=== PATIENT | male | born 1965 | race African-American/Black ===

== ENCOUNTER 2020-08-22 16:11 | Emergency (ER) | payer MEDICAID ==
[~2020-08-22] VITALS: Ht 180.3 cm; Wt 61.4 kg
[2020-08-22] MEDS ORDERED: LIDOCAINE 2% Multi-Dose 20 ML VIAL. IJ ONE (18:45)
--- NOTE | 2020-08-22 20:52 | RAD ---
PQRS Compliance Statement: One or more of the following individualized dose reduction techniques were utilized for this examinat ion: 1. Automated exposure control 2. Adjustment of the mA and/or kV according to patient size 3. Use of iterative reconstruction technique CT head and cervical spine without contrast 08/22/2020 7:17 PM INDICATION: Fall with injury. On blood thinners. COMPARISON: None TECHNIQUE: Multiple axial CT images of the head were obtained from skull base through the vertex with out intravenous contrast. Multiple axial CT images of the cervical spine were obtained without intrav enous contrast. Coronal and sagittal reformats are provided. FINDINGS: Head: Ventricles, sulci and basal cisterns are within normal limits.. Low-attenuation in the periventricula r white matter is suggestive of chronic small vessel ischemic changes. There is no hydrocephalus. Gra y-white matter differentiation is normal. There is no acute intracranial hemorrhage. There is no mass , mass effect or midline shift. Posterior fossa is normal in appearance. Visualized portions of the orbits are normal. Paranasal sinuses are well aerated. Mastoid air cells a re well aerated. Scalp and calvaria are normal. Cervical spine: Minimal retrolisthesis of C4 on C5.. Skull base is intact. Craniocervical junction is normal in appea maximiliano. Atlantoaxial articulation is normal. Vertebral body heights are maintained without evidence for acute fracture. Mild disc height loss at C5, C5-C6 and C6-C7. Mild facet arthropathy. No significant uncovertebral vale int disease. No significant neuroforaminal or spinal canal stenosis There is no prevertebral soft tissue swelling. Thyroid gland is normal in appearance.. Mild parasepta l pulmonary emphysema the lung apices. IMPRESSION: 1. No acute intracranial hemorrhage. Low-attenuation in the periventricular white matter is suggestiv e of chronic small vessel ischemic changes. 2. No acute fracture of the cervical spine. Mild cervical spondylosis. Electronically signed by: Saira Lloyd MD (08/22/2020 8:49 PM) [facility]
[2020-08-22] MEDS ORDERED: CEPH500T PO (22:22)
--- NOTE | 2020-08-22 22:22 | ED.ADGEN ---
Past Medical History Past Medical History: Hypertension, VA, Seizure Past Surgical History: No Surgical History Smoking Status: Current Every Day Smoker Alcohol Use: Heavy General Adult EDM: Chief Complaint: LACERATION/AVULSION HPI: HPI: Patient is a 54 year old AA male who presents emergency department with complaints of a laceration to his left lower lip that happened this morning at 3:00 when he fell down some stairs. Patient reports that there was a brief loss of consciousness. He complains of swelling to his right forehead. Patient denies any loose teeth, chest pain, palpitations, shortness of breath, extremity pain, numbness, tingling, or weakness. He denies any vision changes, dizziness, syncope, fever, nausea, vomiting, diarrhea, or abdominal pain. Patient's denies any dizziness. He states his last tetanus shot was less than 5 years ago. Currently rates his pain a 9 out of 10 on the pain scale, he denies any alleviating factors, the pain is worse if he touches his lip. Review of Systems: Review of Systems: Complete ROS is negative unless otherwise noted in HPI. Current Medications: Current Medications Medications (Trade) Dose Ordered Sig/Anisha Start Time Stop Time Status Last Admin Dose Admin Lidocaine HCl (Lidocaine 2% 20ml Vial) 20 ml 1X ONCE 08/22/20 18:45 08/22/20 18:46 DC 08/22/20 20:45 20 ML Allergies: Allergies: Allergies Coded Allergies Type Severity Reaction Last Updated Verified No Known Drug Allergies 08/22/20 No Physical Exam: PE: See Above Constitutional: Well developed, well nourished, no acute distress, non-toxic appearance unkept appearance. [] HENT: Normocephalic, bilateral external ears normal, nose normal, swelling and small abrasion to the right forehead without any active bleeding or foreign body; laceration to the left lower lip, no obvious dental deformity or loose teeth Eyes: PERRLA, EOMI, conjunctiva normal, no discharge. [] Neck: Normal range of motion, supple, nontender, no stridor. [] Cardiovascular:Heart rate regular rhythm Lungs & Thorax: Respirations even and unlabored, no retractions, no respiratory distress Abdomen: soft, no tenderness Back: Nontender, no obvious deformity or step-off, Skin: Warm, dry, no erythema, no rash; see HENT assessment. [] Extremities: No cyanosis, ROM intact, no edema. [] Neurologic: Alert and oriented X 3, normal motor, normal sensory, no focal deficits noted. [] Psychologic: Affect normal, judgement normal, mood normal. [] Current Patient Data: Vital Signs: Vital Signs Date Time Temp Pulse Resp B/P (MAP) Pulse Ox O2 Delivery O2 Flow Rate FiO2 08/22/20 23:07 71 20 133/66 (88) 100 Room Air 08/22/20 17:31 98.2 98.2 EKG: EKG: [] Heart Score: C/O Chest Pain: No Risk Scores: Score 0 - 3: 2.5% MACE over next 6 weeks - Discharge Home Score 4 - 6: 20.3% MACE over next 6 weeks - Admit for Clinical Observation Score 7 - 10: 72.7% MACE over next 6 weeks - Early Invasive Strategies Radiology/Procedures: Radiology/Procedures: Laceration Repair by me: Anesthesia: 2% lidocaine locally Location: Right lower lip Tendon/Joint/Nerves: No injury Foreign body: None detected after copious irrigation and exploration with NS and chlorhexidine Technique: 2 simple Interrupted Sutures with 5-0 Vicryl Complexity: No subcutaneous sutures/mucosal repair/edge excision Post Closure Length: 1.5 cm Patient's bleeding was easily controlled in the department and there is no indication of anemia. No evidence of compartment syndrome, neurologic injury, vascular injury, open joint, tendon laceration, or foreign body. Patient is appropriate for outpatient follow up. PROCEDURE: CT HEAD AND CERVICAL SPINE WO RS Compliance Statement: One or more of the following individualized dose reduction techniques were utilized for this examination: 1. Automated exposure control 2. Adjustment of the mA and/or kV according to patient size 3. Use of iterative reconstruction technique CT head and cervical spine without contrast 08/22/2020 7:17 PM INDICATION: Fall with injury. On blood thinners. COMPARISON: None TECHNIQUE: Multiple axial CT images of the head were obtained from skull base through the vertex without intravenous contrast. Multiple axial CT images of the cervical spine were obtained without intravenous contrast. Coronal and sagittal reformats are provided. FINDINGS: Head: Ventricles, sulci and basal cisterns are within normal limits.. Low-attenuation in the periventricular white matter is suggestive of chronic small vessel ischemic changes. There is no hydrocephalus. Rhodes-white matter differentiation is normal. There is no acute intracranial hemorrhage. There is no mass, mass effect or midline shift. Posterior fossa is normal in appearance. Visualized portions of the orbits are normal. Paranasal sinuses are well aerated. Mastoid air cells are well aerated. Scalp and calvaria are normal. Cervical spine: Minimal retrolisthesis of C4 on C5.. Skull base is intact. Craniocervical junction is normal in appearance. Atlantoaxial articulation is normal. Vertebral body heights are maintained without evidence for acute fracture. Mild disc height loss at C5, C5-C6 and C6-C7. Mild facet arthropathy. No signi ficant uncovertebral joint disease. No significant neuroforaminal or spinal canal stenosis There is no prevertebral soft tissue swelling. Thyroid gland is normal in appearance.. Mild paraseptal pulmonary emphysema the lung apices. IMPRESSION: 1. No acute intracranial hemorrhage. Low-attenuation in the periventricular white matter is suggestive of chronic small vessel ischemic changes. 2. No acute fracture of the cervical spine. Mild cervical spondylosis. Electronically signed by: Dorothy Guerra MD (08/22/2020 8:49 PM) [facility] DICTATED and SIGNED BY: DOROTHY GUERRA MD DATE: 08/22/[id number] 0 [] [] Course & Med Decision Making: Course & Med Decision Making Pertinent Labs and Imaging studies reviewed. (See chart for details) 54-year-old transient male arrived to the ER with complaints of a lower lip laceration and swelling to his forehead after falling down some stairs this morning at 3:00. Patient also reported a brief loss of consciousness. CT the patient's head and neck was negative for any acute findings. Wound repair as documented above. Patient was given a meal tray and tolerated food and fluids without any nausea or vomiting. Patient was provided with head injury instructions. Prescription was written for Keflex 5 mg p.o. 4 times daily x7 days. He is encouraged to follow-up with his primary care doctor for recheck in the next 1 to 2 days, return to the ER if symptoms worsen or fever develops. Patient verbalized an understanding of home care, medications, follow-up, and return to ED instructions and was in agreement with the plan of care. [] The patient was seen and interviewed as well as examined at the bedside. The chart was reviewed. The case was discussed. Agree with the plan of care. Madan Disclaimer: Madan Disclaimer: This electronic medical record was generated, in whole or in part, using a voice recognition dictation system. Departure Departure Impression: Primary Impression: Lip laceration Additional Impressions: Fall down stairs Closed head injury with brief loss of consciousness Disposition: HOME / SELF CARE / HOMELESS Condition: STABLE Referrals: NO PCP (PCP) Patient Instructions: Head Injury, Adult, [id number], Mouth Laceration, [id number] Additional Instructions: Fill the prescription and use it as directed. The sutures in your lip will dissolve on their own you do not need to have them removed. Tylenol or ibuprofen as needed for pain. Follow the head injury precautions provided. Follow up with your primary care doctor in 1-2 days for wound recheck. Return to the ER if symptoms worsen or fever develops.. Scripts Cephalexin (CEPHALEXIN) 500 Mg Tablet 1 TAB PO QID for 7 Days, #28 TAB 0 Refills Prov: ONESIMO LOPEZ APRN 08/22/20 Problem Qualifiers Primary Impression: Lip laceration Encounter type: initial encounter Qualified Codes: S01.511A - Laceration without foreign body of lip, initial encounter Additional Impressions: Fall down stairs Encounter type: initial encounter Qualified Codes: W10.8XXA - Fall (on) (from) other stairs and steps, initial encounter ONESIMO LOPEZ APRN August 22, 2020 22:22 SAH WOLFE I DO August 25, 2020 19:00
[2020-08-22 23:07] VITALS: BP 133/66
== END 2020-08-22 23:11 | disposition home or self-care (01) ==
LOC: ER 16:11
DX: S01.511A Laceration without foreign body of lip, initial encounter (principal); I10 Essential (primary) hypertension; F17.200 Nicotine dependence, unspecified, uncomplicated; I25.2 Old myocardial infarction; F10.20 Alcohol dependence, uncomplicated; Y90.9 Presence of alcohol in blood, level not specified; W10.8XXA Fall (on) (from) other stairs and steps, initial encounter; Y93.89 Activity, other specified; Y92.89 Other specified places as the place of occurrence of the external cause; Y99.8 Other external cause status
CPT/HCPCS: 12011; 70450; 72125; 99285-25

== ENCOUNTER 2020-08-27 20:02 | Emergency (ER) | payer MEDICAID ==
[~2020-08-27] VITALS: Ht 180.3 cm; Wt 67.7 kg
[~2020-08-27 20:02] MED LIST: CEPH500T PO
[2020-08-27 20:23] VITALS: BP 119/79
--- NOTE | 2020-08-27 21:30 | ED.ADGEN ---
Past Medical History Past Medical History: Hypertension Past Surgical History: No Surgical History Smoking Status: Current Every Day Smoker Alcohol Use: None General Adult EDM: Chief Complaint: MULTIPLE COMPLAINTS HPI: HPI: Patient is a 54 year old homeless AA male who presents emergency department with complaints of his left lower lip laceration opening back up. Patient also states that he has been feeling dizzy at times today. He denies any vision nellie nges, nausea, vomiting, numbness, tingling, or weakness. Patient was evaluated here in the ER couple days ago after he fell down some stairs. CT during that visit was negative for any acute findings. The patient denies any new injuries or falls. Patient refuses to rate his pain on the pain scale, he is requesting something to eat. HPI is limited due to patient noncompliance. Patient is alert to person, place, situation, and year. Review of Systems: Review of Systems: Complete ROS is negative unless otherwise noted in HPI. Allergies: Allergies: Allergies Coded Allergies Type Severity Reaction Last Updated Verified No Known Drug Allergies 08/22/20 No Physical Exam: PE: See Above Constitutional: Well developed, well nourished, no acute distress, non-toxic appearance. [] HENT: Normocephalic, atraumatic, bilateral external ears normal, nose normal. [] Eyes: PERRLA, EOMI, conjunctiva normal, no discharge, no nystagmus. [] Neck: Normal range of motion, no stridor. [] Cardiovascular:Heart rate regular rhythm Lungs & Thorax: Respirations even and unlabored, no retractions, no respiratory distress Skin: Warm, dry, no erythema, no rash; Healing abrasion to left lower lip [] Extremities: No cyanosis, ROM intact, no edema, strength 5/5 in all extremities, normal sensation [] Neurologic: Alert and oriented X 3, normal motor, normal sensory, speech clear, ambulates with steady gait, no focal deficits noted. [] Psychologic: Affect normal, judgement normal, mood normal. [] Current Patient Data: Vital Signs: Vital Signs Date Time Temp Pulse Resp B/P (MAP) Pulse Ox O2 Delivery O2 Flow Rate FiO2 08/27/20 20:23 97.9 95 16 119/79 (92) 100 Room Air 97.9 EKG: EKG: [] Heart Score: C/O Chest Pain: No Radiology/Procedures: Radiology/Procedures: [] Course & Med Decision Making: Course & Med Decision Making Pertinent Labs and Imaging studies reviewed. (See chart for details) Patient is a 54-year-old male who presents emergency department with complaints of lower left lip wound, and intermittent dizziness. Patient is requesting food on arrival to the ER Patient refuses to cooperate with physical exam requests states that he needs food. Malingering behavior is noted. I encouraged the patient to continue application of moisturizing lip salve or Vaseline. I advised him that his lip does not need to be 3 sutured. Follow-up with his primary care doctor in 1 to 2 days, return to the ER if symptoms worsen or fever develops. Patient verbalized an understanding of home care, medications, follow-up, and return to ED instructions and was in agreement with the plan of care. [] Did no personally evaluate the patient. Treatment and care plan was independently made by RAYMOND. I was available for consult. Madan Disclaimer: aMdan Disclaimer: This electronic medical record was generated, in whole or in part, using a voice recognition dictation system. Departure Departure Impression: Primary Impression: Malingering Additional Impression: Abrasion of lip, subsequent encounter Disposition: HOME / SELF CARE / HOMELESS Condition: STABLE Referrals: NO PCP (PCP) Patient Instructions: Abrasion, [id number] Additional Instructions: You can take Tylenol or ibuprofen as needed for pain. Continue to moisturize her lips as instructed. Follow-up with your primary care doctor next week, return to the ER if symptoms worsen. Problem Qualifiers ONESIMO LOPEZ APRN August 27, 2020 21:30 ASH WOLFE I DO August 29, 2020 18:13
== END 2020-08-27 21:40 | disposition home or self-care (01) ==
LOC: ER 20:02
DX: S00.511D Abrasion of lip, subsequent encounter (principal); Z76.5 Malingerer [conscious simulation]; I10 Essential (primary) hypertension; F17.200 Nicotine dependence, unspecified, uncomplicated; Z59.0 Homelessness; W10.8XXD Fall (on) (from) other stairs and steps, subsequent encounter
CPT/HCPCS: 99282

== ENCOUNTER 2020-09-12 12:02 | Emergency (ER) | payer MEDICAID ==
[~2020-09-12] VITALS: Ht 177.8 cm; Wt 72.0 kg
[2020-09-12 13:30] VITALS: BP 147/87
--- NOTE | 2020-09-12 14:05 | RAD ---
Three-view right knee and three-view right ankle dated 09/12/2020. No comparison available. Clinical data indication: Pain. FINDINGS: 3 views the right knee show normal bony alignment. No displaced fracture. Mild tricompartmental hyper trophic change. There is no apparent joint effusion or loose body. There is some deformity of the ant erolateral tibia that could be related to old healed fracture. 3 views the right ankle show normal bony alignment. No displaced fracture. No periostitis or bone abril truction. There is mild degenerative change at the posterior subtalar joint with pelvis plane is. Mil d irregularity at the tip of the distal fibula, age indeterminate. IMPRESSION: 1. No acute abnormality of right knee. Deformity of the anterolateral tibia is likely related to old healed fracture. 2. Slight irregularity at the tip of the distal fibula with overlying soft tissue swelling. Consider acute or chronic ligamentous avulsion injury. 3. Degenerative changes as above. Electronically signed by: Skyler Ordaz MD (09/12/2020 2:02 PM) [id number]
--- NOTE | 2020-09-12 15:16 | PHYS DOC ---
Past Medical History Past Medical History: Hypertension Past Surgical History: No Surgical History Smoking Status: Current Every Day Smoker Alcohol Use: None General Adult EDM: Chief Complaint: KNEE INJURY HPI: HPI: Patient is a 54 year old male patient with history of hypertension who presents to the ED today complaining of 5 out of 10 right ankle and right knee pain, symptoms began 2 weeks ago. Patient describes the pain as sharp and intermittent worse when he walks for a long time. He is homeless. He states aspirin relieves his pain. Review of Systems: Review of Systems: Constitutional: Denies fever or chills. [] : Denies dysuria. [] Musculoskeletal: Reports right ankle and right knee pain. Denies back pain Integument: Denies rash. [] Neurologic: Denies headache, focal weakness or sensory changes. [] Psychiatric: Denies depression or anxiety. [] Heart Score: C/O Chest Pain: N/A Risk Factors: Risk Factors: DM, Current or recent (<one month) smoker, HTN, HLP, family history of CAD, obesity. Risk Scores: Score 0 - 3: 2.5% MACE over next 6 weeks - Discharge Home Score 4 - 6: 20.3% MACE over next 6 weeks - Admit for Clinical Observation Score 7 - 10: 72.7% MACE over next 6 weeks - Early Invasive Strategies Allergies: Allergies: Allergies Coded Allergies Type Severity Reaction Last Updated Verified No Known Drug Allergies 08/22/20 No Physical Exam: PE: Constitutional: Well developed, well nourished, no acute distress, non-toxic appearance. [] Skin: Warm, dry, no erythema, no rash. [] Back: No tenderness, no CVA tenderness. [] Extremities: Right ankle and right knee with no obvious deformity, soft tissue swelling noted on the right ankle. No tenderness on exam, full range of motion to the right knee and right ankle. +2 right pedal pulse. Cap refill less than 2 seconds the right lower extremity Neurologic: Alert and oriented X 3, normal motor function, normal sensory function, no focal deficits noted. [] Psychologic: Affect normal, judgement normal, mood normal. [] EKG: EKG: [] Radiology/Procedures: Radiology/Procedures: []PROCEDURE: KNEE RIGHT 3V Three-view right knee and three-view right ankle dated 09/12/2020. No comparison available. Clinical data indication: Pain. FINDINGS: 3 views the right knee show normal bony alignment. No displaced fracture. Mild tricompartmental hypertrophic change. There is no apparent joint effusion or loose body. There is some deformity of the anterolateral tibia that could be related to old healed fracture. 3 views the right ankle show normal bony alignment. No displaced fracture. No periostitis or bone destruction. There is mild degenerative change at the posterior subtalar joint with pelvis plane is. Mild irregularity at the tip of the distal fibula, age indeterminate. IMPRESSION: 1. No acute abnormality of right knee. Deformity of the anterolateral tibia is likely related to old healed fracture. 2. Slight irregularity at the tip of the distal fibula with overlying soft tis kenneth swelling. Consider acute or chronic ligamentous avulsion injury. 3. Degenerative changes as above. Electronically signed by: Skyler Ordaz MD (09/12/2020 2:02 PM) [id number] DICTATED and SIGNED BY: SKYLER ORDAZ MD DATE: 09/12/20 [id number] Course & Med Decision Making: Course & Med Decision Making Pertinent Labs and Imaging studies reviewed. (See chart for details) This is a 54-year-old male patient presenting to the ED today with right knee pain and right ankle pain for 2 weeks, no known injury. X-rays of the right knee were negative for any acute findings, x-rays of the right ankle were noted for an old or acute ligament injury to the ankle, patient reports a previous ankle injury that he was supposed to have surgery on but he refused. Provided orthopedic doctor for follow-up. Aircast applied to the ankle by oil bay technician neurovascular exam is normal. Discharged with naproxen Dragon Disclaimer: Madan Disclaimer: This electronic medical record was generated, in whole or in part, using a voice recognition dictation system. Departure Departure Impression: Primary Impression: Knee pain, right Qualified Codes: M25.561 - Pain in right knee Additional Impression: Ankle pain, right Qualified Codes: M25.571 - Pain in right ankle and joints of right foot Disposition: 01 HOME / SELF CARE / HOMELESS Condition: STABLE Referrals: NO PCP (PCP) CHAVA BECERRIL DO follow up in one week Patient Instructions: Ankle Pain, Knee Pain, [id number] Additional Instructions: You were seen for right ankle and right knee pain, x-rays of the right knee were negative for any acute findings, you have an old or subacute ligament injury to the right ankle. Please follow up with the provided orthopedic doctor ATTILA WILSON APRN Sep 12, 2020 15:16
== END 2020-09-12 16:11 | disposition home or self-care (01) ==
LOC: ER 12:02
DX: M25.561 Pain in right knee (principal); M25.571 Pain in right ankle and joints of right foot; I10 Essential (primary) hypertension; F17.200 Nicotine dependence, unspecified, uncomplicated; Z59.0 Homelessness
CPT/HCPCS: 29515; 73562; 73610; 99284